=== PATIENT | male | born 1990 | race Caucasian/White ===

== ENCOUNTER 2016-08-17 16:31 | Emergency (ER) | payer SELFPAY ==
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
[2016-08-17 17:23] LABS: Hematocrit 46.9 % (42.0-52.0); Hemoglobin 15.6 gm/dL (13.5-18.0); Mean Cell Volume 83.9 fl (78-100); Mean Corpuscular Hemoglobin 27.9 pg (27-31); Mean Corpuscular Hgb Conc 33.3 g/dl (32-36); Mean Platelet Volume 8.6 fl (6.0-9.5); Platelet Count 388 K/mm3 (150-450); Red Blood Count 5.59 M/mm3 (4.7-6.0); Red Cell Distribution Width 13.2 % (11.5-14.0); White Blood Count 16.3 K/mm3 (4.0-10.5)
[2016-08-17 17:27] LABS: Total Cells Counted 100
[2016-08-17 17:35] LABS: ALT 41 U/L (19-67); AST 48 U/L (0-48); Albumin * 4.4 gm/dl (3.4-5.0); Alkaline Phosphatase * 79 U/L (50-170); Anion Gap 17.2 mmol/L (6.8-13.8); BUN/Creatinine Ratio 21.9 (9.0-21.6); Bilirubin, Total 0.6 mg/dL (0.0-1.1); Blood Urea Nitrogen 23 mg/dL (6-23); Ca. Corrected For Albumin 8.6 mg/dL (8.4-10.2); Calcium * 9.2 mg/dL (7.9-10.9); Carbon Dioxide 23.6 mmol/L (24-32.6); Chloride 103 mmol/L (97-106); Glucose * 75 mg/dL (70-110); Potassium 3.8 mmol/L (3.4-4.6); Sodium 140 mmol/L (132-142); Total Protein 8.4 gm/dL (6.2-8.2)
[2016-08-17 17:39] LABS: Cocaine Ur Negative (NEGATIVE); Urine Barbiturate Negative (NEGATIVE); Urine Benzodiazepines Negative (NEGATIVE); Urine Opiates Negative (NEGATIVE); Urine PCP Negative (NEGATIVE); Urine THC Positive (NEGATIVE)
[2016-08-17] MEDS ORDERED: HALOPERIDOL LACTATE 5 MG/ML VIAL IM ONE ×2 (17:39→20:12)
[2016-08-17] MEDS ORDERED: HALOPERIDOL LACTATE 5 MG/ML VIAL ONE (17:40)
--- NOTE | 2016-08-17 17:50 | ERNOTE ---
<Sylwia Pham - Last Filed: 08/17/16 19:26> Medical Problem HPI - General Chief Complaint: General Assessment Time Seen by Provider: 08/17/16 16:33 Source: patient, family - mother - Immun/Allergies/Home Medications Immunizations: IMMUNIZATION HX Immunizations Up to Date Yes: 2016 History of Influenza Vaccine No Hx Pneumococcal Vaccination No Allergies/Adverse Reactions: Allergies No Known Allergies Allergy (Verified 08/17/16 16:54) - History of Present History Narrative: patient is here with his mother because she picked him up from the police station for being "under the influence of something". Pt denies any alcohol or drug use. He has been acting odd and speaking oddly and laughing and acting appropriately. He denies any use of drugs. Denies any head trauma Review of Systems - Review of Systems Constitutional: Present: no symptoms reported EYE: Present: no symptoms reported ENT: Present: no symptoms reported Respiratory: Present: no symptoms reported Cardiology: Present: no symptoms reported Gastrointestinal/Abdominal: Present: no symptoms reported - Patient's Past Medical History Patient History - Medical: No pertinent hx Patient History - Cardiac/Respiratory: Hypertension Patient History - Cancer: No Hx of Cancer Patient History - Surgical Procedures: Other Patient History - Other: None - Social History Living Situations: alone Abuse History: No History of abuse Psych History: No pertinent hx Alcohol Use: none Drug Use: marijuana - Immunizations Immunizations Up to Date: Yes - 2016 Hx Pneumococcal Vaccination: No History of Influenza Vaccine: No Physical Exam - Physical Exam General Appearance: Present: wd/wn, alert, other - pt is awake and laughs inappropriately. he denies every thing and his speech is somewhat slurred. He laughs inappropriately and is inappropriate in manner. He is calm and his speech runs together. Eye Exam: Normal inspection: bilateral, PERRL: bilateral, EOMI: bilateral Ears, Nose, Throat: Present: normal ENT inspection Neck: Present: normal inspection, nontender Respiratory: Present: no respiratory distress, normal breath sounds, no accessory muscle use, chest nontender, lungs clear Cardiovascular/Chest: Present: regular rate, rhythm, no murmur, normal peripheral pulses Back Exam: Present: normal inspection Extremity Exam: Present: normal inspection Skin Exam: Present: normal color, warm/dry ED Progress - Results and Orders Patient's Lab Results:: I have reviewed the patient's lab results. - Vital Signs Patient's Vital Signs:: I have reviewed the patient's vital signs. Vital Signs: Vital Signs 08/17/16 16:41 Temperature 36 C L Pulse Rate 126 H Respiratory 20 Rate Blood Pressure 154/114 - Progress/Reassessment Chief Complaint: General Assessment - Transfer of Care Physician Sign Out: Sylwia Pham Receiving Physician: Nick Loera Plan - Plan Plan: Dr. Mcgowan was consulted to see pt as he was acting quite erratic in our ED. He was still calm but inappropriate and his mother insisted that they needed help with his drug use. Dr. Grant presented to see patient and deemed patient mentally ill to the point that his drug abuse would be a danger to himself. [employer] Worker Junior was consulted and pt was placed on a 48 hour hold for his own safety and welfare. will sign out to oncoming physician. Departure - Departure Clinical Impression: Drug-induced psychotic disorder Qualifiers: Complication of substance-induced condition: with hallucinations Qualified Code (s): F19.951 - Other psychoactive substance use, unspecified with psychoactive substance-induced psychotic disorder with hallucinations Condition: Serious <Nick Loera - Last Filed: 08/18/16 08:01> Medical Problem HPI - Immun/Allergies/Home Medications Immunizations: IMMUNIZATION HX Immunizations Up to Date Yes: 2016 History of Influenza Vaccine No Hx Pneumococcal Vaccination No ED Progress - Vital Signs Vital Signs: Vital Signs 08/18/16 08/18/16 04:21 04:28 Temperature 36.2 C L Pulse Rate 92 82 Respiratory 18 Rate Blood Pressure 136/72 O2 Sat by Pulse 98 Oximetry - Progress/Reassessment Progress:: Unchanged Progress Note-Subjective: 08/18/16 07:59 Pt slept throughout the night. Has been stable and we are awaiting acceptance to an inpatient psych facility - Transfer of Care Physician Sign Out: Nick Loera Receiving Physician: Sylwia Pham - awaiting transfer acceptance Expected Disposition: Transfer
[2016-08-17 18:21] LABS: Band 3 % (0-2.0); Lymphocyte 25 % (20-51); Monocyte 13 % (0-9); Neutrophil 59 % (42-75); Neutrophil # 9.6 K/mm3 (1.3-6.0)
[2016-08-17 18:22] LABS: Platelet Estimate Normal (NORMAL); RBC Morphology Normal (NORMAL)
[2016-08-17 18:23] LABS: Dohle Bodies Trace; Giant Platelets Trace
[2016-08-18 04:30] LABS: Urine Bilirubin 1 mg/dl (NEGATIVE); Urine Blood Negative /ul (NEGATIVE); Urine Ketone 15 mg/dL (NEGATIVE); Urine Nitrite Negative (NEGATIVE); Urine Protein 15 mg/dL (NEGATIVE); Urine Specific Gravity >=1.030 SP.GR. (1.005-1.030); Urine Urobilinogen Normal (NORMAL)
[2016-08-18 04:45] LABS: Salicylate 3.1 mg/dL (2.8-20.0); TSH * 1.356 uIU/mL (0.358-3.74)
[2016-08-18 04:54] LABS: Urine Amorphous Sediment Many - 3+ (NONE-FEW); Urine Appearance Cloudy; Urine Bacteria TRACE; Urine Color Yellow; Urine RBC None Seen /hpf (0-5); Urine WBC None Seen /hpf (0-5)
[2016-08-18 09:42] LABS: Hematocrit 48.6 % (42.0-52.0); Hemoglobin 16.2 gm/dL (13.5-18.0); Mean Cell Volume 84.8 fl (78-100); Mean Corpuscular Hemoglobin 28.3 pg (27-31); Mean Corpuscular Hgb Conc 33.3 g/dl (32-36); Mean Platelet Volume 8.7 fl (6.0-9.5); Platelet Count 370 K/mm3 (150-450); Red Blood Count 5.73 M/mm3 (4.7-6.0); Red Cell Distribution Width 13.6 % (11.5-14.0); White Blood Count 15.9 K/mm3 (4.0-10.5)
[2016-08-18 09:44] LABS: Total Cells Counted 100
[2016-08-18 09:50] LABS: Band 1 % (0-2.0); Immature Granulocyte 2 (0-1); Lymphocyte 10 % (20-51); Monocyte 8 % (0-9); Neutrophil 79 % (42-75); Neutrophil # 12.6 K/mm3 (1.3-6.0); Platelet Estimate Normal (NORMAL); RBC Morphology Normal (NORMAL)
[2016-08-18 09:57] VITALS: BP 133/65
[2016-08-21 18:58] LABS: Hepatitis C Antibody NON-REACTIVE (NON-REACTIVE); Hepatitis Panel Confirmation DNR
[2016-08-21 20:48] LABS: Hepatitis A IgM Antibody NON-REACTIVE (NON-REACTIVE); Hepatitis B Surface Antigen NON-REACTIVE (NON-REACTIVE); VDRL NON-REACTIVE
== END 2016-08-18 12:00 | disposition short-term general hospital (02) ==
LOC: ER 16:31
DX: F19.951 Other psychoactive substance use, unspecified with psychoactive substance-induced psychotic disorder with hallucinations (principal)
CPT/HCPCS: 36415; 80053; 80074; 80307; 81001; 84443; 85007; 85025; 86592; 87389; 93005; 96372; 99283; G0480; G0481